=== PATIENT | female | born 2000 | race Caucasian/White ===

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

== ENCOUNTER 2023-10-11 11:49 | Emergency (ER) | payer BC ==
[~2023-10-11] VITALS: Ht 157.5 cm; Wt 83.3 kg
[~2023-10-11 11:49] MED LIST changes: +ETON1VAG7 VA; -NUVAMIS2 VA
[2023-10-11 13:09] LABS: BASO % 0.5 % (0.0-1.0); EOS # 0.3 10^3/uL (0.0-0.5); EOS % 4.1 % (0.0-3.0); HEMATOCRIT 43.6 % (36.0-47.0); HEMOGLOBIN 14.9 g/dl (12.0-15.5); LYMPH # 2.3 10^3/uL (1.5-5.0); LYMPH % 36.7 % (24.0-44.0); MEAN CORPUSCULAR HGB CONC 34.2 g/dl (32.0-36.5); MEAN CORPUSCULAR VOLUME 90.6 fl (80.0-96.0); MONO # 0.5 10^3/uL (0.0-0.8); MONO % 7.2 % (2.0-8.0); NEUTROPHILS # 3.3 10^3/uL (1.5-8.5); NEUTROPHILS % 51.3 % (36.0-66.0); PLATELET COUNT, AUTOMATED 250 10^3/uL (150-450); RED BLOOD COUNT 4.81 10^6/uL (4.00-5.40); WHITE BLOOD COUNT 6.4 10^3/uL (4.0-10.0)
[2023-10-11 13:28] LABS: LIPASE 28 U/L (12-53)
[2023-10-11 13:31] LABS: ALKALINE PHOSPHATASE 75 U/L (46-116); ALT/SGPT 16 U/L (7.0-40); AST/SGOT 12 U/L (<34); BILIRUBIN,DIRECT 0.1 MG/DL (<0.4); BILIRUBIN,TOTAL 0.5 MG/DL (0.3-1.2); BLOOD UREA NITROGEN 11 MG/DL (9-23); CALCIUM LEVEL 9.9 MG/DL (8.5-10.1); CARBON DIOXIDE LEVEL 23 MMOL/L (20-31); CHLORIDE LEVEL 109 MMOL/L (98-107); CREATININE FOR GFR 0.79 MG/DL (0.55-1.30); GLOMERULAR FILTRATION RATE > 60.0 (>60); GLUCOSE, FASTING 86 MG/DL (60-100); POTASSIUM SERUM 4.4 MMOL/L (3.5-5.1); SODIUM LEVEL 141 MMOL/L (136-145); TOTAL PROTEIN 7.3 G/DL (5.7-8.2)
[2023-10-11 13:39] LABS: HCG, SERUM QUALITATIVE NEGATIVE (NEGATIVE)
[2023-10-11] MEDS: NS 1,000 ML IV ONE (13:50)
[2023-10-11] MEDS: KETOROLAC 30 MG/ML 1ML VIAL IV ONE (13:50)
[2023-10-11] MEDS: ONDANSETRON 4MG 2ML VIAL IV ONE (13:50)
[2023-10-11] MEDS ORDERED: ISOVUE-370 76% 100ML VIAL As Ordered ONE (13:51)
[2023-10-11 15:16] VITALS: BP 150/83; TEMP 98.5; O2SAT 100
== END 2023-10-11 15:19 | disposition home or self-care (01) ==
LOC: M ED 11:49
DX: N93.9 Abnormal uterine and vaginal bleeding, unspecified (principal); R10.9 Unspecified abdominal pain; Z91.040 Latex allergy status; N80.9 Endometriosis, unspecified; F41.9 Anxiety disorder, unspecified; F17.290 Nicotine dependence, other tobacco product, uncomplicated
CPT/HCPCS: 74177; 76856; 80048; 80076; 81001; 83690; 84703; 85025; 86850; 86900; 86901; 93976; 99284; J1885; J2405; Q9967